=== PATIENT | female | born 1970 | race Caucasian/White ===

== ENCOUNTER → 2017-03-22 | Outpatient (CLI) | payer BC, OTHER | LOC: CIMAGING 11:06 | PROVIDERS: ATTEND Orthopaedic Surgery | DX: Z01.818 Encounter for other preprocedural examination (principal); M16.11 Unilateral primary osteoarthritis, right hip; M51.36 Other intervertebral disc degeneration, lumbar region; M47.816 Spondylosis without myelopathy or radiculopathy, lumbar region; M17.11 Unilateral primary osteoarthritis, right knee; M25.451 Effusion, right hip | CPT/HCPCS: 73700-PO ==

== ENCOUNTER 2017-04-01 05:46 | Inpatient (IN) | payer BC, OTHER ==
[~2017-04-01 05:46] MED LIST: VANCOMYCIN PHARMACY TO DOSE MISC ONE
[2017-04-01] MEDS ORDERED: VANCOMYCIN 1.25 GM in D5W 250 ML IV ONE (06:00)
[2017-04-01] MEDS ORDERED: POVIDONE-IODINE 20 ML in SODIUM CL IRRIG SOLUTION 500 ML IRR ONE (06:00)
[2017-04-01] MEDS ORDERED: TRANEXAMIC ACID 1,000 MG in NS 100 ML IV ONE (06:00)
[2017-04-01] MEDS ORDERED: ROPIVACAINE 0.2% 80 MG, EPINEPHrine 0.2 MG, KETOROLAC TROMETHAMINE 30 MG in SYRINGE 0 ML IU ONE (06:00)
[2017-04-01] MEDS ORDERED: FAMOTIDINE 20 MG TAB PO ONE (06:09)
[2017-04-01] MEDS ORDERED: DEXAMETHASONE 4 MG/ML VIAL IVP ONE (06:09)
[2017-04-01] MEDS ORDERED: ACETAMINOPHEN 325 MG TAB PO ONE (06:09)
[2017-04-01] MEDS ORDERED: LR 1,000 ML IV ONE (06:12)
--- NOTE | 2017-04-01 06:51 | PDHPUP ---
History & Physical Update H&P update statement: This history and physical update is based on an assessment of the patient which was completed after admission or registration (within 24 hours), but prior to the surgery/procedure. H&P update: H&P reviewed & patient examined, no change in patient's condition since H&P completed
[2017-04-01] MEDS ORDERED: BUPIVACAINE/EPI 0.5% 30 ML SDV ONE (06:52)
[2017-04-01] MEDS ORDERED: BACITRACIN 50,000 UNITS/10 ML SYR IRR ONE (06:53)
[2017-04-01] MEDS ORDERED: POLYMYXIN B SULFATE 500,000 UNIT/10 ML SYR IRR ONE (06:53)
[2017-04-01] MEDS ORDERED: MIDAZOLAM 2 MG/2 ML VIAL IVP ONE (07:04)
--- NOTE | 2017-04-01 07:05 | PDANEPAE ---
ANE Past Medical History - Cardiovascular History Hx Hypertension: No Hx Arrhythmias: No Hx Chest Pain: No Hx Coronary Artery / Peripheral Vascular Disease: No Hx CHF / Valvular Disease: No Hx Palpitations: No Cardiovascular History Comment: bp can go up with stress - Pulmonary History Hx COPD: No Hx Asthma/Reactive Airway Disease: No Hx Recent Upper Respiratory Infection: No Hx Oxygen in Use at Home: No Hx Sleep Apnea: No Sleep Apnea Screening Result - Last Documented: Negative - Neurologic History Hx Cerebrovascular Accident: No Hx Seizures: No Hx Dementia: No - Endocrine History Hx Diabetes: No Obesity: severe - Renal History Hx Renal Disorders: No - Liver History Hx Hepatic Disorders: No - Neurological & Psychiatric Hx Hx Neurological and Psychiatric Disorders: Yes Neurological / Psychiatric History Comment: depression - Cancer History Hx Cancer: No - Congenital Disorder History Hx Congenital Disorders: Yes Congenital History Comment: foot problems - GI History Hx Gastrointestinal Disorders: Yes Gastrointestinal History Comment: reflux - Chronic Pain History Chronic Pain: Yes (lower back DJD) - Surgical History Prior Surgeries: foot 2014,2013 ANE Review of Systems Review of Systems: - Exercise capacity METS (RN): 4 METS ANE Patient History - Allergies Allergies/Adverse Reactions: Penicillins Allergy (Intermediate, Verified 03/19/17 16:04) Itching - Home Medications Home Medications: Exalgo 03/19/17 [Last Taken 03/31/17 07:00] Nexium 03/19/17 [Last Taken 04/01/17 04:00] Pristiq 03/19/17 [Last Taken 04/01/17 04:00] - NPO status NPO Since - Liquids (Date): 03/31/17 NPO Since - Liquids (Time): 18:00 NPO Since - Solids (Date): 03/31/17 NPO Since - Solids (Time): 18:00 - Smoking Hx Smoking Status: Never smoked - Family Anes Hx Family Hx Anesthesia Complications: none ANE Labs/Vital Signs - Vital Signs Blood Pressure: 131/75 Heart Rate: 87 Respiratory Rate: 16 O2 Sat (%): 94 Height: 167.64 cm Weight: 90.718 kg ANE Physical Exam - Airway Neck exam: FROM Mallampati Score: Class 1 Mouth exam: normal dental/mouth exam - Pulmonary Pulmonary: no respiratory distress - Cardiovascular Cardiovascular: regular rate and rhythym - ASA Status ASA Status: II ANE Anesthesia Plan Anesthesia Plan: GA w LMA
[2017-04-01] MEDS ORDERED: MIDAZOLAM 2 MG/2 ML VIAL ONE (07:07)
[2017-04-01] MEDS ORDERED: fentaNYL 250 MCG/5 ML INJ ONE (07:11)
[2017-04-01] MEDS ORDERED: PROPOFOL/EMULSION 500 MG/50 ML BOTTLE IV ONE (07:11)
[2017-04-01] MEDS ORDERED: LIDOCAINE 2% 5 ML SDV ONE (07:18)
[2017-04-01] MEDS ORDERED: ROCURONIUM 100 MG/10 ML VIAL ONE ×2 (08:01)
[2017-04-01] MEDS ORDERED: PHENYLEPHRINE HCL 100 MCG/ML SYR ONE (08:05)
[2017-04-01] MEDS ORDERED: METOPROLOL TARTRATE 5 MG/5 ML INJ ONE (08:18)
[2017-04-01] MEDS ORDERED: DEXAMETHASONE 4 MG/ML VIAL ONE (08:21)
[2017-04-01] MEDS ORDERED: ONDANSETRON 4 MG/2 ML VIAL ONE (08:21)
[2017-04-01] MEDS ORDERED: HYDROmorphONE/DILAUDID 2 MG/ML INJ ONE (10:20)
[2017-04-01] MEDS ORDERED: NALOXONE HCL 0.4 MG/ML INJ IVP PRN (10:45)
[2017-04-01] MEDS ORDERED: PROMETHAZINE HCL 25 MG/ML INJ IVP PRN (10:45)
[2017-04-01] MEDS ORDERED: LABETALOL HCL 5 MG/ML 20 ML MDV IVP PRN (10:45)
[2017-04-01] MEDS ORDERED: HYDROCODONE/APAP 5/325 TAB PO PRN (10:45)
[2017-04-01] MEDS ORDERED: LR 500 ML IV PRN (10:45)
[2017-04-01] MEDS ORDERED: CYCLOBENZAPRINE 10 MG TAB PO PRN (11:16)
[2017-04-01] MEDS ORDERED: MAGNESIUM HYDROXIDE 30 ML UDCUP PO PRN (11:16)
[2017-04-01] MEDS ORDERED: ONDANSETRON 4 MG/2 ML VIAL IVP PRN (11:16)
[2017-04-01] MEDS ORDERED: LACTULOSE 20 GM/30 ML UDCUP PO PRN (11:16)
[2017-04-01] MEDS ORDERED: BISACODYL 10 MG SUPP PR PRN (11:16)
[2017-04-01] MEDS ORDERED: DIPHENOXYLATE/ATROPINE LOMOTIL 1 TAB PO PRN (11:16)
[2017-04-01] MEDS ORDERED: POLYETHYLENE GLYCOL 3350 17 GM PKT PO PRN (11:16)
[2017-04-01] MEDS ORDERED: TEMAZEPAM 15 MG CAP PO PRN (11:16)
[2017-04-01] MEDS ORDERED: ONDANSETRON DISINTEGRATING 4 MG TAB PO PRN (11:16)
--- NOTE | 2017-04-01 11:26 | POSTANESTH ---
Post Anesthetic Evaluation Cardiovascular Status: Normal, Stable Respiratory Status: Normal, Stable Level of Consciousness/Mental Status: Mildly Sleepy, Arousable Pain Control: Adequate, Prn Tx Ordered Nausea/Vomiting Control: Adequate, Prn Tx Ordered Complications Possibly Related to Anesthesia: None Noted
--- NOTE | 2017-04-01 11:29 | POSTOPPROG ---
Post Op Note Date of Operation: 04/01/17 Surgeon: Wiliam Michael Ultrasound Tech: SA Quinton Anesthesiologist: MD Lesly Anesthesia: GET(General Endotracheal) Pre-op Diagnosis: R hip OA Post-op Diagnosis: same Procedure: R anterior approach LATOYA with robotic guidance Inf/Abcess present in the surg proc area at time of surgery?: No EBL: 500-1000 Drains: Hemovac
[2017-04-01] MEDS ORDERED: LR 1,000 ML IV SCH (11:30)
[2017-04-01] MEDS ORDERED: fentaNYL 100 MCG/2 ML INJ ONE (11:39)
[2017-04-01] MEDS: fentaNYL 100 MCG/2 ML INJ IVP PRN ×2 (11:40→11:47)
[2017-04-01] MEDS ORDERED: HYDROmorphONE/DILAUDID 1 MG/ML INJ ONE ×2 (11:53→12:18)
[2017-04-01] MEDS: HYDROmorphONE/DILAUDID 1 MG/ML INJ IVP PRN ×3 (11:54→12:14)
[2017-04-01] MEDS: oxyCODONE IR 5 MG TAB PO PRN ×3 (13:37→20:13)
[2017-04-01] MEDS ORDERED: VANCOMYCIN 1.25 GM in D5W 250 ML IV SCH (20:00)
[2017-04-01] MEDS: FAMOTIDINE 20 MG TAB PO SCH (20:11)
[2017-04-01] MEDS: SENNOSIDES/DOCUSATE SODIUM TAB PO SCH (20:11)
[2017-04-01] MEDS ORDERED: ALPRAZolam 0.25 MG TAB PO SCH (22:00)
[2017-04-01] MEDS ORDERED: ZOLPIDEM TARTRATE 5 MG TAB PO SCH (22:00)
[2017-04-01] MEDS: EZETIMIBE 10 MG TAB PO SCH ×2 (22:05→22:08)
[2017-04-01] MEDS: ATORVASTATIN CALCIUM 20 MG TAB PO SCH ×2 (22:05→22:09)
[2017-04-02] MEDS: oxyCODONE IR 5 MG TAB PO PRN ×4 (02:33→16:37)
--- NOTE | 2017-04-02 03:12 | GOP ---
[f rep st] OPERATIVE REPORT DATE OF OPERATION: 04/01/2017 SURGEON: Wiliam Michael MD DREDGE PIPEMAN: Cedric Harp SA. Seed Trucker was required for the procedure due to the complexity of th e case and the patient's condition for positioning, prepping, draping, and retraction and closure. ANESTHESIA: General. PREOPERATIVE DIAGNOSIS: Right hip osteoarthritis, possible gluteus medius tear. POSTOPERATIVE DIAGNOSIS: Right hip osteoarthritis. PROCEDURE PERFORMED: Right hip anterior approach hip replacement with MAKOplasty robotic guidance an d fluoroscopic supervision. FINDINGS: SPECIMENS: None. ESTIMATED BLOOD LOSS: 700 cc. INDICATIONS: The patient has severe hip osteoarthritis that failed to improve with conservative kimberli ures, significantly affecting activities of daily living including walking. The patient elected to p roceed with anterior approach hip replacement using MAKOplasty robotic guidance after extensive discu ssion of all possible approaches as well as the risks, benefits, pros, cons, expected recovery, and p rognosis. The patient verbalized understanding of the risks and benefits of the procedure and signed informed consent prior to the procedure. DESCRIPTION OF PROCEDURE: The patient was seen in the holding area and the operative consent was sig barak. The patient was taken to the operating room, and after a smooth induction of general anesthesia the patient was placed in supine position on the [facility] fracture table. The hip and contralateral i liac crest were prepped and draped in the usual sterile fashion. The operative site was confirmed by signature. Operative time-out was performed. Allergies were reviewed. Antibiotics and TXA were ad ministered. Three pins were placed in the contralateral iliac crest and pelvic array was fixed. It was well visu alized by the robot, and desired incision for the anterior approach on the hip was infiltrated with 0 .25% Marcaine with epinephrine. This incision was made with a 10 blade and carried down to subcutane ous tissue to identify the TFL fascia. This was incised in line with the incision, and the TFL was r etracted laterally. The lateral femoral cutaneous vessels were coagulated with Aquamantys. The deep TFL fascia was incised and the vastus lateralis was clearly exposed. The pre-capsular fat was excis ed. An oblique T-shaped capsulotomy was performed and the capsule was preserved for later closure. A femoral array screw was fixed into the anterior greater trochanter, as well as the checkpoint for t he femur. The femoral registration was performed using the robot. Femoral neck was cut. Femoral ne ck cut was then performed under robotic guidance. The femoral head was excised with a corkscrew. The acetabulum was exposed in standard fashion. The labrum, pulvinar, and soft tissue were excised s harply. The pelvic checkpoint was placed in the AIIS. Acetabular registration was performed using t he robot. Reaming was then performed using the robot to the desired size. The cup was impacted into place again with robotic guidance system. Good fixation was achieved. The cup was irrigated and dr crawford, and the liner was impacted into place achieving good locking within the cup. The femur was then exposed in standard fashion. The femur was broached to the desired size. A trial neck and head were attached, and the hip was relocated. Length and offset were confirmed using the robot. The position of all components was confirmed with fluoroscopy. The hip was dislocated and th e femoral trial components were removed. The stem was impacted into place. The trunnion was cleaned and dried, and the head was impacted down into the trunnion. The wound was copiously irrigated, inc luding the cup, with pulse lavage and then the hip was once again relocated and final numbers for capri gth and offset were taken using the robot. Component placement was confirmed with fluoroscopy. All checkpoints and the femoral array screw were removed. The pelvic array was also removed. The wound was copiously irrigated with sterile solution and Betadine wash. The capsule was repaired with #1 Vi cryl. Indirect head of the rectus femoris was also repaired with #1 Vicryl. The drain was placed ex iting distal and laterally from deep to TFL. The wound was then closed in layers with 0 Quill in the TFL, fascia, and deep subcutaneous fat, 3-0 Versalok in the dermis. The wound was dressed with ster ile dressings. The patient was safely awakened, extubated, and taken to recovery room in stable cond ition. All critical portions of the procedure were performed by myself, Dr. Michael. The operative not e was created by myself, Dr. Michael, and I was immediately available for emergency cross-coverage at al l times. DRAINS: One Hemovac x1. COMPLICATIONS: None. IMPLANTS: Titanium hemispherical acetabular solid-back shell size 50, plus 0 degree eccentric polyet hylene liner, as well as Accolade II stem size 4, 132 degree offset, 32 mm -4 head. /[id number]/MODL
[2017-04-02 05:22] LABS: HEMATOCRIT 31.7 % (38.0-47.0); HEMOGLOBIN 10.8 g/dL (12.6-16.3)
[2017-04-02] MEDS ORDERED: PANTOPRAZOLE SODIUM 40 MG TAB PO SCH (07:00)
[2017-04-02] MEDS ORDERED: HYDROMORPHONE HCL 12 MG PO SCH (07:00)
[2017-04-02] MEDS ORDERED: DESVENLAFAXINE SUCCINATE 100 MG PO SCH (07:00)
[2017-04-02] MEDS: PREGABALIN 150 MG CAP PO SCH ×2 (07:03→16:37)
[2017-04-02] MEDS: SENNOSIDES/DOCUSATE SODIUM TAB PO SCH (09:52)
[2017-04-02] MEDS: FAMOTIDINE 20 MG TAB PO SCH (09:52)
--- NOTE | 2017-04-02 15:13 | SOAPPROG ---
SOAP Progress Note Assessment/Plan: Assessment:46F POD#1 s/p R anterior LATOYA JORGE L Plan: WBAT with PT/OT H/o of chronic narcotic use. Additional analgesics required Lovenox for DVT proph IS 10x/hr F/u on April 16 D/c home 04/02/17 15:09 Subjective: No acute events overnight. Comfortable but requiring additional narcotics secondary to chronic use. Denies f/c/c/cp/sob/n/v/numbness/tingling/bowel movement. Objective: Vital Signs Temp Pulse Resp BP Pulse Ox 36.8 C 116 H 16 111/72 90 L 04/02/17 11:47 04/02/17 11:47 04/02/17 11:47 04/02/17 11:47 04/02/17 11:47 Laboratory Results 04/02/17 04:50 04/01/17 04/02/17 04/03/17 05:59 05:59 05:59 Intake Total 3667 1000 Output Total 3030 Balance 637 1000 AAOx3 NAD easy breathing RLE: dressings c/d/i minimal swelling or bruising compartments soft calf soft/nontender Intact EHL/FHL SILT L3-S1 2+DP/PT - Time Spent With Patient Time Spent With Patient: 30 - Pending Discharge Pending Discharge Within 24 Hours: Yes Pending Discharge Date: 04/02/17 Pending Discharge Time: 16:00 ICD10 Worksheet Patient Problems: Problems Problem Status Onset Osteoarthritis of right hip Acute
[2017-04-02 15:21] VITALS: BP 96/67; PULSE 115; RESP 18; TEMP 98.6; O2SAT 99
--- NOTE | 2017-04-02 16:59 | ASMTCMCOM ---
CM Note CM Note Notes: Pt medically stable for d/c with family assist, no CM d/c needs identified. Date Signed: 04/02/2017 04:58 PM Electronically Signed By:DELMAR Arnett
--- NOTE | 2017-04-02 17:21 | ASDISCHSUM ---
Discharge Information Plan Status:Home with No Needs Medically Cleared to Leave: Discharge Date:04/02/2017 05:07 PM CM D/C Disposition:Home, Routine, Self-Care ADT D/C Disposition:Home, Routine, Self-Care Projected Discharge Date:04/02/2017 05:07 PM Transportation at D/C: Discharge Delay Reason: Follow-Up Date:04/02/2017 05:07 PM Discharge Slot: Final Diagnosis: Placement Information Patient Contact Information Contact Name:KIARA Relationship: Address:[address] [place] [address] Home Phone: City:[place] Alternate Phone: [facility]/Zip Code:[place] [address] Email: Financial Information Financial Class:HMO and PPO Plans Primary Plan Desc:H[employer] Primary Plan Number:[id number] Secondary Plan Desc: Secondary Plan Number: Assessment Information [facility] CM Progress Note CM Note CM Note Notes: Pt medically stable for d/c with family assist, no CM d/c needs identified. Date Signed: 04/02/2017 04:58 PM Electronically Signed By:DELMAR Arnett Intervention Information
--- NOTE | 2017-04-02 21:07 | GDS ---
[f rep st] DISCHARGE SUMMARY ADMITTING DIAGNOSIS: Right hip osteoarthritis. DISCHARGE DIAGNOSIS: Right hip osteoarthritis. PROCEDURE PERFORMED: Right anterior approach total hip arthroplasty with JORGE L robotic guidance. CONSULTATIONS: Include Physical Therapy and Occupational Therapy. HOSPITAL COURSE: The patient was admitted on April 01 for the above procedure. The procedure w as performed without complication. She tolerated it well. She was placed on perioperative antibioti cs of vancomycin due to a penicillin allergy. She was given Lovenox for DVT prophylaxis. Pain was c ontrolled with multiple narcotics, as she has a history of chronic narcotic use. Her Hemovac drain w as discontinued at 6:00 a.m. on postoperative day 1. She was up with Physical and Occupational Thera py and tolerated it well. She was deemed safe and clear for discharge home on postoperative day 1. The patient has an excellent support network at home with multiple family members. DISCHARGE DISPOSITION: Home. CONDITION UPON DISCHARGE: Stable. FOLLOWUP: The patient will follow up on April 16 for her first postoperative visit. She is lisha ghtbearing as tolerated. DISCHARGE INSTRUCTIONS: Other postoperative care instructions including dressing changes and physica l therapy have been discussed and hard copies were presented to the patient. The patient and understand and agree with the treatment plan. Questions were answered. /[id number]/MODL
== END 2017-04-02 17:07 | disposition home or self-care (01) | DRG 470 ==
LOC: F3N 05:46
PROVIDERS: ADMIT Orthopaedic Surgery; ATTEND Orthopaedic Surgery
PROC: BQ101ZZ Fluoroscopy of Right Hip using Low Osmolar Contrast (ICD-10-PCS; principal; 2017-04-01 07:15)
PROC: 8E0Y0CZ Robotic Assisted Procedure of Lower Extremity, Open Approach (ICD-10-PCS; principal; 2017-04-01 07:15)
PROC: 0SR904Z Replacement of Right Hip Joint with Ceramic on Polyethylene Synthetic Substitute, Open Approach (ICD-10-PCS; principal; 2017-04-01 07:15)
DX: M16.11 Unilateral primary osteoarthritis, right hip (principal); F32.9 Major depressive disorder, single episode, unspecified; F11.11 Opioid abuse, in remission; M51.36 Other intervertebral disc degeneration, lumbar region; Z88.0 Allergy status to penicillin
CPT/HCPCS: 97116-GP; 97161-GP; 97165-GO; 97530-GP; J0171; J1100; J1170; J1885; J2250; J2370; J2405; J2704; J2795; J3010; J3370

== ENCOUNTER → 2018-01-24 | Outpatient (CLI) | payer OTHER | LOC: FIMAGING 10:52 | PROVIDERS: ATTEND Physical Medicine & Rehabilitation | DX: M48.02 Spinal stenosis, cervical region (principal); M50.121 Cervical disc disorder at C4-C5 level with radiculopathy; R29.2 Abnormal reflex; R53.1 Weakness ==